=== PATIENT | female | born 1995 | race African-American/Black ===

== ENCOUNTER 2024-03-08 18:02 | Emergency (ER) | payer OTHER ==
[2024-03-08 19:25] LABS: #Basophils 0.04 10x3/uL (0.0-0.2); #Eosinphils 0.18 10x3/uL (0.0-0.5); #Monocytes 0.69 10x3/uL (0.0-1.1); %Basophils 0.5 % (0.0-2.0); %Eosinophils 2.2 % (0.0-6.0); %Lymphocytes 22.5 % (18.0-47.0); %Monocytes 8.6 % (0.0-10.0); %Neutrophils 65.8 % (40.0-75.0); Hemoglobin 11.5 g/dL (12.0-15.5); Mean Corpuscular HGB CONC 33.8 g/dL (32.0-36.0); Mean Corpuscular Hemoglobin 29.8 pg (27.0-33.0); Mean Corpuscular Volume 88.1 fL (81.6-98.3); Mean Platelet Volume 9.4 fL (7.4-10.4); Platelet Count 307 10x3/uL (150-450); RBC Distribution Width 13.7 % (11.5-14.5); Red Blood Cell (RBC) Count 3.86 10x6/uL (3.90-5.03); White Blood Cell (WBC) Count 8.1 10x3/uL (3.5-10.5)
[2024-03-08 19:27] LABS: Bilirubin Neg (Negative); Blood, Urine 250 (Negative); Clarity Cloudy (Clear); Glucose, Urine (Dipstick) Normal (Negative); Ketone, Urine Negative (Negative); Leukocyte 25 (Negative); Nitrite Positive (Negative); Protein, Urine (Dipstick) 30 mg/dl (Neg-Trace); Specific Gravity, Urine 1.015 (1.005-1.030); Urobilinogen Normal mg/dL (Less than 2)
[2024-03-08 19:38] LABS: ALT (SGPT) 10 U/L (8-55); AST (SGOT) 12 U/L (5-34); Albumin 3.7 g/dL (3.5-5.0); Alkaline Phosphatase 49 U/L (40-110); Anion Gap 13 mmol/L (10-20); BUN (Urea Nitrogen) 8 mg/dL (7.0-18.7); Bilirubin, Total 0.4 mg/dL (0.2-1.2); Calc. Creatinine Clearance 0 mL/min (70-130); Calcium 9.4 mg/dL (7.8-10.44); Carbon Dioxide 23 mmol/L (22-29); Chloride 105 mmol/L (98-107); Estimated GFR 111; Globulin 3.3 g/dL (2.4-3.5); Glucose 94 mg/dL (70-105); Lipase 28 U/L (8-78); Potassium 3.5 mmol/L (3.5-5.1); Sodium 137 mmol/L (136-145)
[2024-03-08 19:48] LABS: CAUTI Indications for Culture Pelvic or flank pain; RBC/HPF Greater than 50 HPF (0-3)
[2024-03-08 19:49] LABS: Bacteria/HPF 4+ HPF (None Seen); Urine Culture Reflex Yes Yes
== END 2024-03-08 21:45 | disposition home or self-care (01) ==
LOC: CSHERS 18:02
DX: O23.41 Unspecified infection of urinary tract in pregnancy, first trimester (principal); N39.0 Urinary tract infection, site not specified; Z3A.08 8 weeks gestation of pregnancy
CPT/HCPCS: 36415; 76856; 80053; 81001; 83690; 84702; 85025; 86900; 86901; 87077; 87086; 87186

== ENCOUNTER 2024-03-13 17:32 | Emergency (ER) | payer OTHER ==
[2024-03-13] MEDS ORDERED: Ondansetron ODT 4 MG TAB ONE (18:00)
[2024-03-13 18:20] LABS: #Basophils 0.03 10x3/uL (0.0-0.2); #Eosinphils 0.09 10x3/uL (0.0-0.5); #Monocytes 0.59 10x3/uL (0.0-1.1); #Neutrophils 6.33 10x3/uL (1.5-8.4); %Basophils 0.3 % (0.0-2.0); %Lymphocytes 24.9 % (18.0-47.0); %Monocytes 6.3 % (0.0-10.0); %Neutrophils 67.2 % (40.0-75.0); Hematocrit 35.3 % (34.9-44.5); Hemoglobin 12.3 g/dL (12.0-15.5); Mean Corpuscular HGB CONC 34.8 g/dL (32.0-36.0); Mean Corpuscular Hemoglobin 30.3 pg (27.0-33.0); Mean Corpuscular Volume 86.9 fL (81.6-98.3); Mean Platelet Volume 9.2 fL (7.4-10.4); Platelet Count 343 10x3/uL (150-450); RBC Distribution Width 13.7 % (11.5-14.5); Red Blood Cell (RBC) Count 4.06 10x6/uL (3.90-5.03); White Blood Cell (WBC) Count 9.4 10x3/uL (3.5-10.5)
[2024-03-13 18:31] LABS: ALT (SGPT) 9 U/L (8-55); AST (SGOT) 13 U/L (5-34); Alkaline Phosphatase 63 U/L (40-110); Anion Gap 14 mmol/L (10-20); BUN (Urea Nitrogen) 8 mg/dL (7.0-18.7); Bilirubin, Total 0.3 mg/dL (0.2-1.2); Calc. Creatinine Clearance 0 mL/min (70-130); Calcium 9.8 mg/dL (7.8-10.44); Carbon Dioxide 24 mmol/L (22-29); Chloride 108 mmol/L (98-107); Estimated GFR 103; Globulin 3.7 g/dL (2.4-3.5); Glucose 96 mg/dL (70-105); Potassium 3.5 mmol/L (3.5-5.1); Protein, Total 7.7 g/dL (6.0-8.3); Sodium 142 mmol/L (136-145)
[2024-03-13 18:44] LABS: Bilirubin Neg (Negative); Blood, Urine 250 (Negative); Clarity Cloudy (Clear); Glucose, Urine (Dipstick) Normal (Negative); Ketone, Urine Negative (Negative); Leukocyte 25 (Negative); Nitrite Negative (Negative); Protein, Urine (Dipstick) 100 mg/dl (Neg-Trace); Urobilinogen Normal mg/dL (Less than 2)
[2024-03-13 18:53] LABS: Bacteria/HPF Rare-Few HPF (None Seen); CAUTI Indications for Culture Pelvic or flank pain; RBC/HPF Greater than 50 HPF (0-3); Squamous Epithelial 0-3 HPF (0-3); Urine Culture Reflex No No; WBC/HPF 0-3 HPF (0-3)
[2024-03-13] MEDS ORDERED: HYDROcodone/Acetaminophen 5/325 mg Tablet ONE (19:09)
[2024-03-13] MEDS ORDERED: fentaNYL 50 mcg/mL 1 mL Vial ONE (19:49)
[2024-03-13] MEDS ORDERED: Droperidol 5 MG/2 ML VIAL SLOW IVP SCH (20:15)
[2024-03-13] MEDS ORDERED: Ketorolac Tromethamine 30 MG (1 mL) VIAL ONE (20:29)
[2024-03-13] MEDS ORDERED: Carboprost 250 MCG/ML AMP ONE (21:42)
[2024-03-13] MEDS ORDERED: Misoprostol 200 MCG TAB ONE (21:42)
== END 2024-03-13 22:33 | disposition home or self-care (01) ==
LOC: CSHERS 17:32
DX: O03.9 Complete or unspecified spontaneous abortion without complication (principal)
CPT/HCPCS: 36415; 76856; 80053; 81001; 84702; 85025; 86900; 86901; 88305; 96374; 96375; J1790; J1885; J3010; J3490; Q0162

== ENCOUNTER 2024-04-25 06:57 | Emergency (ER) | payer OTHER ==
[2024-04-25] MEDS ORDERED: Ketorolac Tromethamine 30 MG (1 mL) VIAL ONE (07:46)
== END 2024-04-25 07:55 | disposition home or self-care (01) ==
LOC: CSHERS 06:57
DX: K03.81 Cracked tooth (principal)
CPT/HCPCS: 96372; 99282; J1885

== ENCOUNTER 2025-05-19 10:44 | Day surgery (SDC) | payer BC, OTHER ==
[2025-05-19 11:32] VITALS: BMI 32.5
[2025-05-19] MEDS ORDERED: hydrALAZINE 20 MG/ML VIAL SLOW IVP PRN (12:12)
== END 2025-05-19 12:50 | disposition home or self-care (01) ==
LOC: CSHLD/OP 10:44
PROVIDERS: ATTEND Obstetrics & Gynecology
DX: O99.891 Other specified diseases and conditions complicating pregnancy (principal); R10.30 Lower abdominal pain, unspecified; N89.8 Other specified noninflammatory disorders of vagina; O28.8 Other abnormal findings on antenatal screening of mother; Z3A.26 26 weeks gestation of pregnancy